=== PATIENT | male | born 1950 | race Caucasian/White ===

== ENCOUNTER 2019-10-21 20:35 | Emergency (ER) | payer OTHER ==
[~2019-10-21] VITALS: Ht 188 cm; Wt 90.0 kg
[2019-10-21 23:32] VITALS: BP 167/98
== END 2019-10-21 23:34 | disposition home or self-care (01) ==
LOC: ER 20:36
DX: H53.8 Other visual disturbances (principal)
CPT/HCPCS: 99284

== ENCOUNTER 2024-03-01 09:40 | Emergency (ER) | payer OTHER ==
[~2024-03-01] VITALS: Ht 182.9 cm; Wt 82.6 kg
[2024-03-01 09:43] VITALS: BP 152/85; PULSE 68; TEMP 97.9; O2SAT 97
[2024-03-01 10:03] LABS: BILIRUBIN,URINE NEGATIVE (Neg); CLARITY,URINE CLEAR (Clear); COLOR,URINE YELLOW (Yellow); GLUCOSE, URINE NEGATIVE (Neg); KETONES,URINE TRACE mg/dl (Neg); LEUKOCYTE ESTERASE ,URINE NEGATIVE (Neg); NITRITES, URINE NEGATIVE (Neg); OCCULT BLOOD,URINE NEGATIVE (Neg); PROTEIN,URINE NEGATIVE (Neg); UROBILINOGEN,URINE 0.2 E.U/dL (0.2-1.0)
[2024-03-01 10:09] LABS: UA COLLECTION TYPE CLN CATCH MIDSTREAM
[2024-03-01 10:52] VITALS: RESP 16
== END 2024-03-01 11:05 | disposition home or self-care (01) ==
LOC: ER 09:41
DX: N43.3 Hydrocele, unspecified (principal)
CPT/HCPCS: 76870; 81003; 93976; 99284